=== PATIENT | male | born 1985 | race Caucasian/White ===

== ENCOUNTER 2019-06-28 | Emergency (ER) | payer SELFPAY ==
[~2019-06-28] MED LIST: APAP OR; FLEXERIL10 MG OR; LORTAB 5 OR; LORTAB 7.5 OR; NO; PENICILLN VK500 MG OR; PEPTO-BISM524 MG/30 OR; PERCOCET 5/325M1 TAB OR; PROMETHAZINE25 M1 RE; TYLENOL P1 OR; ULTRAM50 MG OR; [UNRECOGNIZED DRUG - OTHER] OR
[2019-06-28] MEDS ORDERED: FLONASE AL50 MCG/ACT (21:38)
[2019-06-28] MEDS ORDERED: CEPHALEXIN500 MG PO (21:38)
== END 2019-06-28 21:59 | disposition home or self-care (01) | DRG 153 ==
DX: J31.0 Chronic rhinitis (principal); F17.210 Nicotine dependence, cigarettes, uncomplicated

== ENCOUNTER 2021-08-28 17:40 | Emergency (ER) | payer SELFPAY ==
[~2021-08-28] VITALS: Ht 175.3 cm; Wt 113.3 kg
[~2021-08-28 17:40] MED LIST changes: +CEPHALEXIN500 MG PO; +FLONASE AL50 MCG/ACT
[2021-08-28] MEDS ORDERED: DEBROX6.5 % OT (18:57)
[2021-08-28 19:09] VITALS: BP 143/92
== END 2021-08-28 19:20 | disposition home or self-care (01) | DRG 156 ==
LOC: ED 17:40
DX: H61.23 Impacted cerumen, bilateral (principal); R51.9 Headache, unspecified; F17.210 Nicotine dependence, cigarettes, uncomplicated

== ENCOUNTER 2021-08-30 06:38 | Emergency (ER) | payer SELFPAY ==
[2021-08-30] VITALS (8 sets, daily range): BP systolic 113–149; BP diastolic 72–98
[~2021-08-30] VITALS: Ht 175.3 cm; Wt 113.0 kg
[~2021-08-30 06:38] MED LIST changes: +DEBROX6.5 % OT
[2021-08-30] MEDS ORDERED: FIORICET PO (08:42)
[2021-08-30] MEDS ORDERED: OMNICEF300 M1 PO (08:42)
[2021-08-30] MEDS ORDERED: REGLAN10 MG PO (08:42)
== END 2021-08-30 09:00 | disposition home or self-care (01) | DRG 103 ==
LOC: ED 06:38
DX: R51.9 Headache, unspecified (principal); I10 Essential (primary) hypertension; K04.7 Periapical abscess without sinus; F17.210 Nicotine dependence, cigarettes, uncomplicated

== ENCOUNTER 2022-04-26 13:31 | Emergency (ER) | payer SELFPAY ==
[~2022-04-26] VITALS: Ht 175.3 cm; Wt 127.0 kg
[~2022-04-26 13:31] MED LIST changes: +FIORICET PO; +OMNICEF300 M1 PO; +REGLAN10 MG PO
[2022-04-26 13:45] VITALS: BP 145/89
[2022-04-26 14:00] VITALS: BP 138/80
[2022-04-26 14:17] VITALS: BP 137/103
[2022-04-26 14:21] LABS: BASO% 0.4 % (0-3); EOS% 0.8 % (0-8); HEMATOCRIT 41.7 % (39.0-50.0); HEMOGLOBIN 14.8 g/dl (14.0-18.0); IMMATURE GRANULOCYTES 0.3 % (0.0-5.0); LYMPH% 4.7 % (15-41); MEAN CELL VOLUME 92.5 fL CALC (80.0-100.0); MEAN CORPUSCULAR HGB 32.8 pG CALC (26.0-32.0); MEAN CORPUSCULAR HGB CONC 35.5 g/dL CAL (32.0-36.0); MONO% 5.5 % (2-13); NEUT# 6.74 thou/uL (1.82-7.42); NEUT% 88.3 % (42-76); RED BLOOD COUNT 4.51 mill/uL (4.70-6.10); RED CELL DISTRI WIDTH 12.5 % (11.5-15.5)
[2022-04-26 14:31] VITALS: BP 121/80
[2022-04-26 14:37] LABS: ALBUMIN 4.7 g/dL (3.2-5.0); ALKALINE PHOSPHATASE 67 u/l (38-126); ANION GAP 16 (6-22 (CALC)); BUN 13 mg/dL (9-20); BUN/CREATININE RATIO 12 (12-20 (CALC)); CARBON DIOXIDE 18 mmol/l (22-30); CHLORIDE 106 mmol/l (95-108); CREATININE 1.1 mg/dL (0.7-1.3); GFR FOR AFR.AMER. > 60 ML/MIN (>=60 (CALC)); GFR OTHER RACES > 60 ML/MIN (>=60 (CALC)); POTASSIUM 4.2 mmol/l (3.5-5.1); SGOT/AST 31 u/l (17-59); SODIUM 136 mmol/l (137-146); TOTAL PROTEIN 7.9 g/dL (6.3-8.2)
[2022-04-26] MEDS ORDERED: ZOFRAN4 MG/TAB PO (15:30)
[2022-04-26] MEDS ORDERED: MECLIZINE25 M1 PO (15:30)
[2022-04-26 15:54] VITALS: BP 121/80
== END 2022-04-26 16:08 | disposition home or self-care (01) | DRG 149 ==
LOC: ED 13:31
PROVIDERS: Emergency Medicine
DX: R42 Dizziness and giddiness (principal); R07.9 Chest pain, unspecified; F17.210 Nicotine dependence, cigarettes, uncomplicated
CPT/HCPCS: J2060

== ENCOUNTER 2022-09-28 15:05 | Emergency (ER) | payer SELFPAY ==
[~2022-09-28] VITALS: Ht 175.3 cm; Wt 100.0 kg
[~2022-09-28 15:05] MED LIST changes: +MECLIZINE25 M1 PO; +ZOFRAN4 MG/TAB PO
[2022-09-28 15:22] VITALS: BP 132/87
[2022-09-28 15:30] VITALS: BP 129/89
[2022-09-28 16:00] VITALS: BP 125/88
[2022-09-28] MEDS ORDERED: TOBREX OPTH5 ML/BTL OU (16:14)
[2022-09-28 16:15] VITALS: BP 125/88
== END 2022-09-28 16:26 | disposition home or self-care (01) | DRG 125 ==
LOC: ED 15:05
DX: H57.12 Ocular pain, left eye (principal); F17.210 Nicotine dependence, cigarettes, uncomplicated

== ENCOUNTER 2022-12-07 14:18 | Emergency (ER) | payer SELFPAY ==
[2022-12-07] VITALS (12 sets, daily range): BP systolic 114–148; BP diastolic 77–104
[~2022-12-07] VITALS: Ht 175.3 cm; Wt 104.0 kg
[~2022-12-07 14:18] MED LIST changes: +TOBREX OPTH5 ML/BTL OU
[2022-12-07 15:20] LABS: BASO% 0.4 % (0-3); EOS% 0.6 % (0-8); HEMOGLOBIN 14.5 g/dl (14.0-18.0); IMMATURE GRANULOCYTES 0.3 % (0.0-5.0); LYMPH% 22.5 % (15-41); MEAN CELL VOLUME 93.2 fL CALC (80.0-100.0); MEAN CORPUSCULAR HGB 30.7 pG CALC (26.0-32.0); MONO% 6.5 % (2-13); NEUT# 4.75 thou/uL (1.82-7.42); NEUT% 69.7 % (42-76); RED BLOOD COUNT 4.72 mill/uL (4.70-6.10); RED CELL DISTRI WIDTH 12.7 % (11.5-15.5)
[2022-12-07 15:44] LABS: ALBUMIN 5.1 g/dL (3.2-5.0); ALKALINE PHOSPHATASE 65 u/l (38-126); BUN 14 mg/dL (9-20); BUN/CREATININE RATIO 12 (12-20 (CALC)); CHLORIDE 100 mmol/l (95-108); CREATININE 1.2 mg/dL (0.7-1.3); GFR FOR AFR.AMER. > 60 ML/MIN (>=60 (CALC)); GFR OTHER RACES > 60 ML/MIN (>=60 (CALC)); LIPASE 59 u/l (23-300); SGOT/AST 36 u/l (17-59); TOTAL PROTEIN 8.7 g/dL (6.3-8.2)
[2022-12-07 15:46] LABS: ANION GAP 17 (6-22 (CALC)); CARBON DIOXIDE 30 mmol/l (22-30); POTASSIUM 3.2 mmol/l (3.5-5.1); SODIUM 144 mmol/l (137-146)
[2022-12-07] MEDS ORDERED: OMEPRAZOLE20 MG PO (18:16)
== END 2022-12-07 18:59 | disposition home or self-care (01) | DRG 392 ==
LOC: ED 14:18
PROVIDERS: Family Medicine
DX: K52.9 Noninfective gastroenteritis and colitis, unspecified (principal); F17.200 Nicotine dependence, unspecified, uncomplicated
CPT/HCPCS: J0131; Q9967; S0164

== ENCOUNTER 2023-06-10 11:50 | Emergency (ER) | payer SELFPAY ==
[~2023-06-10] VITALS: Ht 175.3 cm; Wt 104.0 kg
[~2023-06-10 11:50] MED LIST changes: +OMEPRAZOLE20 MG PO
[2023-06-10 12:50] VITALS: BP 141/96
[2023-06-10] MEDS ORDERED: PREDNISONE10 MG PO (12:51)
[2023-06-10] MEDS ORDERED: IBUPROFEN600 MG PO (12:52)
[2023-06-10 13:01] VITALS: BP 123/78
[2023-06-10 13:16] VITALS: BP 125/69
[2023-06-10 13:31] VITALS: BP 129/83
[2023-06-10] MEDS ORDERED: NAPROXEN500 MG PO (13:43)
[2023-06-10] MEDS ORDERED: FLEXERIL5 M1 PO (13:43)
[2023-06-10] MEDS ORDERED: KETOROLAC TROMETHAMINE 30 MG/ML SDV IM ONE (13:45)
[2023-06-10] MEDS ORDERED: ORPHENADRINE CITRATE 30 MG/ML AMP IM ONE (13:45)
[2023-06-10 14:05] VITALS: BP 129/83
== END 2023-06-10 14:07 | disposition home or self-care (01) | DRG 552 ==
LOC: ED 11:50
DX: M54.6 Pain in thoracic spine (principal); F17.200 Nicotine dependence, unspecified, uncomplicated